=== PATIENT | female | born 1975 | race Caucasian/White ===

== ENCOUNTER 2019-05-07 12:43 | Emergency (ER) | payer SELFPAY ==
[~2019-05-07] VITALS: Ht 165.1 cm; Wt 89.2 kg
[2019-05-07] MEDS ORDERED: IV NORMAL SALINE 1,000ML 1,000 ML IV SCH (13:26)
--- NOTE | 2019-05-07 13:32 | PHYS DOC ---
Past History Past Medical History: Kidney Stones, Seizure Past Surgical History: Hysterectomy, Tonsillectomy Additional Smoking Information: Pack a day smoker Alcohol Use: Rarely Drug Use: None Adult General Chief Complaint Chief Complaint: ABDOMINAL PAIN HPI HPI Patient is a 44 year old female who presents with complaint of left-sided abdominal and flank pain. States that symptoms started yesterday morning. The patient notes that the pain feels sharp and constant. Denies any known exacerbating factors. States that she has had history of kidney stones and states that her symptoms feel similar to her previous episode. Has had slight nausea. Denies any change in stool habits. Took ibuprofen 800 mg with no significant relief in symptoms. Has not noticed any blood in her urine or increased frequency. Review of Systems Review of Systems Constitutional: Denies fever or chills [] Eyes: Denies change in visual acuity, redness, or eye pain [] HENT: Denies nasal congestion or sore throat [] Respiratory: Denies cough or shortness of breath [] Cardiovascular: Denies chest pain or edema[] GI: Abdominal pain, left flank pain, nausea, denies vomiting or diarrhea[] : Denies dysuria or hematuria [] Musculoskeletal: Denies back pain or joint pain [] Integument: Denies rash or skin lesions [] Neurologic: Denies headache, focal weakness or sensory changes [] All other systems were reviewed and found to be within normal limits, except as documented in this note. Current Medications Current Medications Current Medications Medications (Trade) Dose Ordered Sig/[place] Start Time Stop Time Status Last Admin Dose Admin Fentanyl Citrate (Fentanyl 2ml Vial) 50 mcg PRN Q15MIN PRN 05/07/19 13:30 05/08/19 13:29 UNV Ketorolac Tromethamine (Toradol 30mg Vial) 30 mg 1X ONCE 05/07/19 13:30 05/07/19 13:31 UNV Ondansetron HCl (Zofran) 4 mg 1X ONCE 05/07/19 13:30 05/07/19 13:31 UNV Sodium Chloride 1,000 ml @ 1,000 mls/hr Q1H 05/07/19 13:26 05/07/19 14:25 UNV Allergies Allergies Allergies Coded Allergies Type Severity Reaction Last Updated Verified No Known Drug Allergies 05/07/19 No Physical Exam Physical Exam Constitutional: Alert, afebrile, appears in [id number] discomfort. [] HENT: Normocephalic, atraumatic, bilateral external ears normal, oropharynx moist, no oral exudates, nose normal. [] Eyes: PERRLA, EOMI, conjunctiva normal, no discharge. [] Neck: Normal range of motion, no tenderness, supple, no stridor. [] Cardiovascular:Heart rate regular rhythm, no murmur [] Lungs & Thorax: Bilateral breath sounds clear to auscultation [] Abdomen: Bowel sounds normal, soft, no tenderness, no masses, no pulsatile masses. [] Skin: Warm, dry, no erythema, no rash. [] Back: No tenderness, no CVA tenderness. [] Extremities: No tenderness, no cyanosis, no clubbing, ROM intact, no edema. [] Neurologic: Alert and oriented X 3, normal motor function, normal sensory function, no focal deficits noted. [] Current Patient Data Vital Signs Vital Signs Date Time Temp Pulse Resp B/P (MAP) Pulse Ox O2 Delivery O2 Flow Rate FiO2 05/07/19 12:54 99.1 97 20 99 Lab Results Laboratory Tests Test 05/07/19 13:20 05/07/19 13:52 Urine Collection Type Unknown Urine Color Radha Urine Clarity Clear Urine pH 5.5 Urine Specific [place] 1.025 Urine Protein 30 mg/dl Urine Glucose (UA) Neg mg/dL Urine Ketones (Stick) Trace mg/dL Urine Blood Neg Urine Nitrite Neg Urine Bilirubin Neg Urine Urobilinogen Dipstick 0.2 mg/dL Urine Leukocyte Esterase Neg Urine RBC 0 /HPF Urine WBC 1-4 /HPF Urine Squamous Epithelial Cells Many /LPF Urine Bacteria Mod /HPF Urine Mucus Marked /LPF White Blood Count 7.8 x10^3/uL Red Blood Count 4.24 x10^6/uL Hemoglobin 14.2 g/dL Hematocrit 41.5 % Mean Corpuscular Volume 98 fL Mean Corpuscular Hemoglobin 34 pg Mean Corpuscular Hemoglobin Concent 34 g/dL Red Cell Distribution Width 14.0 % Platelet Count 142 x10^3/uL Neutrophils (%) (Auto) 67 % Lymphocytes (%) (Auto) 25 % Monocytes (%) (Auto) 8 % Eosinophils (%) (Auto) 1 % Basophils (%) (Auto) 0 % Neutrophils # (Auto) 5.2 x10^3uL Lymphocytes # (Auto) 1.9 x10^3/uL Monocytes # (Auto) 0.6 x10^3/uL Eosinophils # (Auto) 0.0 x10^3/uL Basophils # (Auto) 0.0 x10^3/uL Sodium Level 142 mmol/L Potassium Level 3.8 mmol/L Chloride Level 107 mmol/L Carbon Dioxide Level 24 mmol/L Anion Gap 11 Blood Urea Nitrogen 13 mg/dL Creatinine 0.8 mg/dL Estimated GFR (Cockcroft-Gault) 77.9 BUN/Creatinine Ratio 16 Glucose Level 89 mg/dL Calcium Level 9.0 mg/dL Total Bilirubin 0.5 mg/dL Aspartate Amino Transf (AST/SGOT) 19 U/L Alanine Aminotransferase (ALT/SGPT) 33 U/L Alkaline Phosphatase 89 U/L Total Protein 6.9 g/dL Albumin 3.7 g/dL Albumin/Globulin Ratio 1.2 Lipase 130 U/L Current Medications Medications (Trade) Dose Ordered Sig/[place] Route PRN Reason Start Time Stop Time Status Last Admin Dose Admin Fentanyl Citrate (Fentanyl 2ml Vial) 50 mcg PRN Q15MIN PRN IV PAIN GREATER THAN 3/10 05/07/19 14:00 05/08/19 13:59 Sodium Chloride 1,000 ml @ 1,000 mls/hr Q1H IV 05/07/19 13:26 05/07/19 14:25 DC 05/07/19 14:01 Ondansetron HCl (Zofran) 4 mg 1X ONCE IV 05/07/19 14:00 05/07/19 14:01 DC Ketorolac Tromethamine (Toradol 30mg Vial) 30 mg 1X ONCE IV 05/07/19 14:00 05/07/19 14:01 DC 05/07/19 14:01 EKG EKG Not performed[] Radiology/Procedures Radiology/Procedures [address] [address] IMAGING REPORT Signed PATIENT: EMILY COOMBS ACCOUNT: [id number] : 1975 LOCATION: ER AGE: 44 SEX: F EXAM STATUS: REG ER ORD. PHYSICIAN: BARB SHAVER MD REASON: left sided pelvic and flank pain, hx of kidney stones PROCEDURE: CT ABDOMEN PELVIS WO CONTRAST CT ABDOMEN PELVIS WO CONTRAST Indication: Left flank pain last night. History of kidney stones. Exposure: One or more of the following individualized dose reduction techniques were utilized for this examination: 1. Automated exposure control 2. Adjustment of the mA and/or kV according to patient size 3. Use of iterative reconstruction technique. Comparison: None Technique: No intravenous contrast given. No oral contrast per request. Findings: Evaluation of solid viscera, bowel and vasculature is compromised by the noncontrast technique. Lung bases are clear. Spleen upper limits normal at 12 cm. Liver mildly enlarged at 19 cm. Pancreas appears unremarkable. No evidence of adrenal mass. Kidneys demonstrate no evidence of hydronephrosis or urolithiasis. No calcified gallstone. The aorta is nonaneurysmal. Mild calcification of the aorta. No significant lymph node enlargement. No significant small bowel distention. Colonic diverticulosis. Wall thickening and pericolonic fatty stranding at the proximal sigmoid colon with adjacent fascial thickening. No evidence of pneumoperitoneum. No organized fluid collection or abscess. No evidence of significant ascites. The appendix appears normal. Urinary bladder is not adequately distended for evaluation. No evidence of pelvic mass. Vertebral body height and alignment are intact. There is degenerative spondylosis. Posterior disc bulging or protrusion particularly at the lumbosacral junction where there is at least mild stenosis. No aggressive bone destruction. Degenerative changes at the hips. IMPRESSION: 1. Colonic diverticulosis. There is a short segment of abnormal proximal sigmoid colon, compatible with acute colitis, most likely acute diverticulitis. Follow-up CT or colonoscopy after acute treatment could be of benefit to exclude mass lesion. 2. Mild hepatomegaly. Borderline splenic enlargement. Electronically signed by: Rafa Zaragoza MD (05/07/2019 2:04 PM) [id number] DICTATED AND SIGNED BY: RAFA ZARAGOZA MD DATE: 05/07/19 2469 CC: BARB SHAVER MD; PCP,NO ~ [] Course & Med Decision Making Course & Med Decision Making Pertinent Labs and Imaging studies reviewed. (See chart for details) Patient was given IV fluids, fentanyl, Toradol, and Zofran. CT shows evidence of acute diverticulitis. Patient started on oral Cipro and Flagyl for treatment. Patient prescribed 10 day course of Flagyl and Cipro for outpatient treatment. Advised follow-up with primary doctor in the next 5 days for reevaluation. Stated that patient would also need likely for referral to a county extension agent in the next several weeks for likely endoscopy as radiologist does note need to rule out potential mass or neoplasm as a cause for the patient's symptoms. This was communicated to the patient she was understanding of this. I recommended that patient return to emergency department for any worsening symptoms. Patient voiced understanding and in agreement with treatment plan. Dragon Disclaimer Dragon Disclaimer This electronic medical record was generated, in whole or in part, using a voice recognition dictation system. Departure Departure: Impression: Primary Impression: Acute diverticulitis Disposition: HOME, SELF-CARE Condition: IMPROVED Referrals: PCP,BENY (PCP) Patient Instructions: Diverticulitis Additional Instructions: Be sure to finish antibiotics as prescribed for treatment of your condition. His recommended in the next several weeks that you follow-up with a county extension agent as you will need screening colonoscopy to rule out the presence of any potential cancerous or precancerous lesions as a cause for your condition today. Be sure to follow-up with your primary doctor in the next 5 days for reevaluation. Return to the emergency department for any worsening symptoms. Scripts Ciprofloxacin Hcl (CIPRO) 500 Mg Tablet 1 TAB PO BID, #20 TAB Prov: BARB SHAVER MD 05/07/19 Metronidazole (FLAGYL) 500 Mg Tablet 1 TAB PO TID, #30 TAB Prov: BRAB SHAVER MD 05/07/19 Docusate Sodium (COLACE) 100 Mg Capsule 1 CAP PO BID, #30 CAP Prov: BARB SHAVER MD 05/07/19 Hydrocodone Bit/Acetaminophen (NORCO 5-325 TABLET) 1 Each Tablet 1 TAB PO Q6HRS PRN for PAIN, #15 TAB 0 Refills Prov: BARB SHAVER MD 05/07/19 BARB SHAVER MD May 07, 2019 13:32
[2019-05-07 13:42] LABS: BILIRUBIN,URINE NEG (NEG); CLARITY,URINE CLEAR; COLOR,URINE AMBER; GLUCOSE,URINE NEG (NEG); NITRITE,URINE NEG (NEG); UROBILINOGEN,URINE 0.2 mg/dL (0.2 mg/dL)
[2019-05-07 13:43] LABS: BACTERIA,URINE MOD /HPF (0-FEW); RBC,URINE 0 /HPF (0-2); SQUAMOUS EPITHELIAL CELL,UR MANY /LPF
[2019-05-07] MEDS ORDERED: ONDANSETRON PF 4 MG/2 ML VIAL. IV ONE (14:00)
[2019-05-07] MEDS ORDERED: KETOROLAC 30 MG/ML VIAL. IV ONE (14:00)
--- NOTE | 2019-05-07 14:07 | RAD ---
CT ABDOMEN PELVIS WO CONTRAST Indication: Left flank pain last night. History of kidney stones. Exposure: One or more of the following individualized dose reduction techniques were utilized for this examination: 1. Automated exposure control 2. Adjustment of the mA and/or kV according to patient size 3. Use of iterative reconstruction technique. Comparison: None Technique: No intravenous contrast given. No oral contrast per request. Findings: Evaluation of solid viscera, bowel and vasculature is compromised by the noncontrast technique. Lung bases are clear. Spleen upper limits normal at 12 cm. Liver mildly enlarged at 19 cm. Pancreas appears unremarkable. No evidence of adrenal mass. Kidneys demonstrate no evidence of hydronephrosis or urolithiasis. No calcified gallstone. The aorta is nonaneurysmal. Mild calcification of the aorta. No significant lymph node enlargement. No significant small bowel distention. Colonic diverticulosis. Wall thickening and pericolonic fatty stranding at the proximal sigmoid colon with adjacent fascial thickening. No evidence of pneumoperitoneum. No organized fluid collection or abscess. No evidence of significant ascites. The appendix appears normal. Urinary bladder is not adequately distended for evaluation. No evidence of pelvic mass. Vertebral body height and alignment are intact. There is degenerative spondylosis. Posterior disc bulging or protrusion particularly at the lumbosacral junction where there is at least mild stenosis. No aggressive bone destruction. Degenerative changes at the hips. IMPRESSION: 1. Colonic diverticulosis. There is a short segment of abnormal proximal sigmoid colon, compatible with acute colitis, most likely acute diverticulitis. Follow-up CT or colonoscopy after acute treatment could be of benefit to exclude mass lesion. 2. Mild hepatomegaly. Borderline splenic enlargement. Electronically signed by: Rafa Zaragoza MD (05/07/2019 2:04 PM) [id number]
[2019-05-07 14:13] LABS: BASO % 0 % (0-3); EOS % 1 % (0-3); HEMATOCRIT 41.5 % (36.0-47.0); HEMOGLOBIN 14.2 g/dL (12.0-15.5); LYMPH # 1.9 x10^3/uL (1.0-4.8); LYMPH % 25 % (24-48); MEAN CORPUSCULAR HEMOGLOBIN 34 pg (25-35); MEAN CORPUSCULAR HGB CONC 34 g/dL (31-37); MEAN CORPUSCULAR VOLUME 98 fL (79-100); MONO # 0.6 x10^3/uL (0.0-1.1); MONO % 8 % (0-9); NEUT # 5.2 x10^3uL (1.8-7.7); NEUT % 67 % (31-73); PLATELET COUNT 142 x10^3/uL (140-400); RED BLOOD COUNT 4.24 x10^6/uL (3.50-5.40); WHITE BLOOD COUNT 7.8 x10^3/uL (4.0-11.0)
[2019-05-07 14:29] LABS: ALBUMIN 3.7 g/dL (3.4-5.0); ALBUMIN/GLOBULIN RATIO 1.2 (1.0-1.7); CREATININE 0.8 mg/dL (0.6-1.0); GFR 77.9; POTASSIUM 3.8 mmol/L (3.5-5.1); TOTAL BILIRUBIN 0.5 mg/dL (0.2-1.0); TOTAL PROTEIN 6.9 g/dL (6.4-8.2)
[2019-05-07] MEDS ORDERED: HYDR-3165 PO (15:09)
[2019-05-07] MEDS ORDERED: METR500T PO (15:09)
[2019-05-07] MEDS ORDERED: CIPR500T94 PO (15:09)
[2019-05-07] MEDS ORDERED: DOCU-109 PO (15:09)
[2019-05-07 15:30] VITALS: BP 127/84
[2019-05-07] MEDS ORDERED: metroNIDAZOLE 500 MG TABLET PO ONE (15:30)
[2019-05-07] MEDS ORDERED: CIPROFLOXACIN HCL 500 MG TABLET PO ONE (15:30)
== END 2019-05-07 15:17 | disposition home or self-care (01) ==
LOC: ER 12:43
DX: K57.30 Diverticulosis of large intestine without perforation or abscess without bleeding (principal); R16.0 Hepatomegaly, not elsewhere classified; F17.200 Nicotine dependence, unspecified, uncomplicated; Z87.442 Personal history of urinary calculi; Z90.710 Acquired absence of both cervix and uterus
CPT/HCPCS: 36415; 74176; 80053; 81001; 83690; 85025; 87086; 96374; 96375; 99285; J1885; J2405; J3010; J7030